=== PATIENT | female | born 1970 | race Two or more races ===

== ENCOUNTER 2025-07-23 07:01 | Emergency (ER) | payer OTHER ==
[~2025-07-23] VITALS: Ht 162.6 cm; Wt 108.9 kg
[2025-07-23] MEDS ORDERED: HYDRALAZINE HCL25 MG PO (07:56)
[2025-07-23] MEDS ORDERED: JARDIANCE10 MG PO (07:56)
[2025-07-23] MEDS ORDERED: COZAAR100 MG PO (07:56)
[2025-07-23] MEDS ORDERED: NORVASC5 MG PO (07:57)
[2025-07-23] MEDS ORDERED: PEPCID AC20 MG PO (07:57)
[2025-07-23] MEDS ORDERED: LIPITOR20 MG (07:57)
[2025-07-23] MEDS ORDERED: OZEMPIC0.25 MG/02 SQ (07:58)
[2025-07-23] MEDS ORDERED: KETOROLAC TROMETHAMINE 60 MG VIAL IM ONE (08:30)
[2025-07-23 09:22] LABS: BASO % 0.6 % (0.1-1.2); EOS # 0.10 (0.04-0.54); EOS % 1.4 % (0.7-7.0); LYMPH # 1.90 (1.18-3.74); LYMPH % 26.7 % (19.3-53.1); MEAN PLATELET VOLUME 11.70 fl (9.4-12.4); MONO # 0.55 (0.24-0.82); MONO % 7.7 % (4.7-12.5); NEUT # 4.52 (1.56-6.13); NEUT % 63.5 % (34.0-71.1); RED CELL DISTRIBUTION WIDTH 12.1 % (11.6-14.4)
[2025-07-23 09:25] LABS: URINE APPEARANCE Clear; URINE BILIRRUBIN Negative (NEGATIVE); URINE BLOOD Large; URINE COLOR Yellow; URINE GLUCOSE Negative (NEGATIVE); URINE KETONE Negative (NEGATIVE); URINE LEUKOCYTE Trace; URINE NITRATE Negative; URINE PROTEIN Trace (NEGATIVE); URINE UROBILINOGEN 0.2 E.U./dl
[2025-07-23 09:30] LABS: URINE BACTERIA 3749.7 uL (0.0-1933); URINE EPITHELIAL CELLS 49.0 uL (0.0-38.8); URINE RBC 160.0 uL (0.0-20.8); URINE WBC 25.0 uL (0.0-23.2)
[2025-07-23 10:27] LABS: URINE CAST 0.29 uL (0.0-1.40)
== END 2025-07-23 14:31 | disposition home or self-care (01) ==
LOC: ER 07:01
PROVIDERS: Emergency Medicine
DX: N83.202 Unspecified ovarian cyst, left side (principal); N83.201 Unspecified ovarian cyst, right side; N39.0 Urinary tract infection, site not specified; E11.9 Type 2 diabetes mellitus without complications; Z79.84 Long term (current) use of oral hypoglycemic drugs; I10 Essential (primary) hypertension